=== PATIENT | female | born 1955 | race Caucasian/White ===

== ENCOUNTER 2020-10-31 07:17 | Day surgery (SDC) | payer MEDICARE, OTHER ==
[~2020-10-31 07:17] MED LIST: Midazolam 1 MG/ML 2 ML SDV ONE; Ondansetron 4 MG/2 ML SDV ONE; Propofol 200 MG/20 ML SDV ONE; fentaNYL 100 MCG/2 ML SDV ONE
[2020-10-31] MEDS ORDERED: Bupivacaine 0.5% 10 ML SDV ONE (07:22)
[2020-10-31] MEDS ORDERED: Octyl 2-Cyanoacrylate 1 Tube ONE (07:22)
--- NOTE | 2020-10-31 08:46 | PCM.OPNOTE ---
- General Post-Op/Procedure Note Date of Surgery/Procedure: 10/31/20 Operative Procedure(s): Rt. axillary mass excision Findings: 2 x 1.5 x.8 cm right axillary mass Pre Op Diagnosis: Rt. axillary mass Post-Op Diagnosis: Rt.axillary mass Anesthesia Technique: Local Primary Surgeon: Fely Renteria Fluid Replacement, Intraop: 0 EBL in mLs: 2 Condition: Good
--- NOTE | 2020-10-31 10:06 | OR ---
SURGEON: FELY RENTERIA MD DATE OF PROCEDURE: 10/31/2020 PREOPERATIVE DIAGNOSIS: Right axillary mass. POSTOPERATIVE DIAGNOSIS: Right axillary mass. PROCEDURE PERFORMED: Excision of right axillary mass. PRIMARY SURGEON: Fely Renteria MD ANESTHESIA: Local. FLUIDS: 0 mL of crystalloid. ESTIMATED BLOOD LOSS: 2 mL. FINDINGS: 2 x 1.5 x 0.8 cm right axillary mass. COMPLICATIONS: None. INDICATIONS: The patient is a 64-year-old female who presents to clinic with a recurrent mass in the right axilla. 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 An ultrasound was performed, which showed no evidence of a mass in the area. Given the equivocal ultrasound results, the decision was made to proceed to the operating room to perform an excisional biopsy of this right axillary mass. The patient and I discussed the procedure, expected perioperative course, and the risks. She verbalized understanding and wishes to proceed. PROCEDURE IN DETAIL: The patient was brought into the OR and placed on the OR table in supine position. A time-out was completed verifying the patient's name, age, date of , allergies, and procedure to be performed. The right arm was placed at a 90-degree angle and it was prepped and draped in usual standard fashion. I anesthetized the area overlying the right axillary mass with a 1:1 mixture of 0.5% Marcaine plain and 1% lidocaine plain. 10 mL of this mixture was used. A 15 blade was used to make a 3 cm incision overlying the top of the mass. Using electrocautery, I dissected down to the subcutaneous fat. There was a firmer area of fat. I dissected this free from the surrounding subcutaneous fat down to the level of the muscular fascia below. No margins were associated with the case. Once it was completely free from the surrounding tissues, the mass was placed on the back table and measured. It measured 2 x 1.5 x 0.8 cm in size. It was sent to pathology, labeled as right axillary mass. I then used cautery to achieve hemostasis within the wound. I closed the incision with interrupted 3-0 Vicryl in the subcutaneous fat layer and closed the skin with a running Monocryl stitch. Dermabond and sterile dressings were applied. The patient tolerated the procedure well and was transferred back to the preoperative area in stable condition. All counts were complete and correct at the end of the case. TATIANA / LETTY /[id number]
== END 2020-10-31 09:02 | disposition home or self-care (01) ==
LOC: MW.SDS 07:17
PROVIDERS: ATTEND Surgery
DX: D17.21 Benign lipomatous neoplasm of skin and subcutaneous tissue of right arm (principal); J45.30 Mild persistent asthma, uncomplicated; E03.9 Hypothyroidism, unspecified; Z88.2 Allergy status to sulfonamides; Z01.812 Encounter for preprocedural laboratory examination; Z20.822 Contact with and (suspected) exposure to COVID-19; Z79.82 Long term (current) use of aspirin; Z79.890 Hormone replacement therapy; Z79.899 Other long term (current) drug therapy; Z98.890 Other specified postprocedural states
CPT/HCPCS: 21555; 88304; A9270; J3490; U0002; J2250; J2405; J2704; J3010